=== PATIENT | male | born 1965 | race Caucasian/White ===

== ENCOUNTER → 2018-02-14 | Outpatient (CLI) | payer BC ==
--- NOTE | 2018-02-14 12:28 | ECHOS ---
STRESS ECHOCARDIOGRAM DATE OF SERVICE: 02/14/2018 INDICATIONS: Chest discomfort. MEDICATIONS: BASELINE HEART RATE: 83 BASELINE BLOOD PRESSURE: 134/63 MAXIMUM HEART RATE: 154 MAXIMUM BLOOD PRESSURE: 165/68 85% MPHR: 145 100% MPHR: 170 METS: 9.5 MAXIMUM STAGE REACHED: II TOTAL EXERCISE TIME: 8 minutes CLINICAL INFORMATION: STRESS DATA: Pretesting physical examination showed a heart rate of 83, pressure is 134/60 mmHg. Baseline EKG showed sinus rhythm. The patient exercised on the treadmill according to Ian protocol for a total of 8 minutes and achieved 9.5 METs. Max heart rate was 154, which is about 90% of maximum predicted heart rate. Maximum blood pressure was 165/68 mmHg. Clinically, the patient did not have any symptoms of chest pain or chest discomfort during the testing or on recovery and the EKG did not show any significant ST or T-wave abnormalities concerning for ischemia. ECHOCARDIOGRAM IMAGES: On echocardiogram images from parasternal long axis view, parasternal short axis view, apical 4 chamber view and apical 2 chamber view were obtained as the baseline images, at peak heart rate, as well as on recovery and the echocardiogram images showed good augmentation in the left ventricular systolic function without any evidence of wall motion abnormalities concerning for ischemia. CONCLUSION: 1. Good exercise capacity. 2. Normal EKG in response to exercise. 3. Normal echocardiogram in response to exercise. 4. Essentially normal stress test for the patient. MMODL / IJN: [id number] /
== END | disposition home or self-care (01) ==
LOC: RADNMMAIN 09:51
PROVIDERS: ATTEND Family Medicine
DX: R94.31 Abnormal electrocardiogram [ECG] [EKG] (principal)
CPT/HCPCS: 93351

== ENCOUNTER → 2018-07-13 | Outpatient (CLI) | payer BC | END | disposition home or self-care (01) | LOC: RADMRIMAIN 17:15 | PROVIDERS: ATTEND Orthopaedic Surgery | DX: Z53.9 Procedure and treatment not carried out, unspecified reason (principal) ==

== ENCOUNTER 2023-04-19 08:08 | Day surgery (SDC) | payer BC ==
[2023-04-13 16:02] VITALS: BMI 37.3
[~2023-04-19 08:08] MED LIST: LACTATED RINGERS 1,000 ML IV SCH; LIDOCAINE 1% (10MG/ML) FOR IV START INTRADERMA PRN
[2023-04-19 08:43] VITALS: TEMP 97
[2023-04-19 08:49] LABS: Glucose,Whole Blood 128 mg/dL (70-110)
[2023-04-19] MEDS ORDERED: LIDOCAINE 2% (PF) 20 MG/ML 5 ML VIAL ONE (09:13)
[2023-04-19] MEDS ORDERED: PROPOFOL 10 MG/ML 20 ML VIAL IV ONE (09:13)
--- NOTE | 2023-04-19 09:46 | P.PCN ---
Date of Procedure: 04/19/23 Procedure(s) Performed: BRIEF HISTORY: Patient is a a 57-year-old pleasant white male scheduled for an elective colonoscopy as a part of screening for colon cancer. PROCEDURE PERFORMED: Colonoscopy with biopsy and snare polypectomy. PREOPERATIVE DIAGNOSIS: Screening for colon cancer. IV sedation per Anesthesia. PROCEDURE: After informed consent was obtained, the patient, was brought into the endoscopy unit. IV sedation was administered by Anesthesia under continuous monitoring. Digital rectal examination was normal. Initially the Olympus CF-160 flexible video colonoscope was then inserted in the rectum, gradually advanced into the cecum moderate to severe difficulty. Careful examination was performed as the scope was gradually being withdrawn. Ileocecal valve and the appendiceal orifice were visualized and appeared normal. Prep was excellent. Mucosa of the cecum, we normal. In the ascending colon had a 3 mm polyp that was removed by cold biopsy. In the hepatic flexure there was a 5 mm and 7 mm polyp removed by snare polypectomy. Rest of the ascending colon, transverse colon, descending colon, up in normal. The sigmoid: There was a 5 limited) 8 mm polyp removed by snare polypectomy. sigmoid colon, and rectum appeared normal. Retroflexion was performed in the rectum and no lesions were seen. The patient tolerated the procedure well. IMPRESSION: 3 mm ascending colon polyp status post cold biopsy 5 mm and 7 mm hepatic flexure polyp status post polypectomy 5 mm and 8 mm sigmoid: Polyp status post polypectomy RECOMMENDATIONS: Findings of this examination were discussed with the patient well as his family. He was advised to follow with the biopsy results. If the biopsy reveals adenoma he can have a repeat colonoscopy in 3 years..
[2023-04-19 10:20] VITALS: BP 128/82; PULSE 76; RESP 16
== END 2023-04-19 10:29 | disposition home or self-care (01) ==
LOC: ORWHC2ENDO 08:08
PROVIDERS: ATTEND Internal Medicine Gastroenterology
DX: Z12.11 Encounter for screening for malignant neoplasm of colon (principal); D12.2 Benign neoplasm of ascending colon; D12.3 Benign neoplasm of transverse colon; D12.5 Benign neoplasm of sigmoid colon; I10 Essential (primary) hypertension; E11.9 Type 2 diabetes mellitus without complications; Z79.84 Long term (current) use of oral hypoglycemic drugs; Z79.811 Long term (current) use of aromatase inhibitors; Z79.899 Other long term (current) drug therapy
CPT/HCPCS: 88305; 45380; 45385; J2704; J2001